=== PATIENT | female | born 1995 | race Caucasian/White ===

== ENCOUNTER 2016-09-09 15:31 | Inpatient (IN) | payer OTHER ==
[~2016-09-09] VITALS: Ht 160 cm; Wt 52.7 kg
[2016-09-09] MEDS ORDERED: SODIUM CHLORIDE 0.9% 1,000ML IVBOLUS ONE ×2 (16:00→23:30)
[2016-09-09] MEDS ORDERED: KETOROLAC 30 MG/1 ML IVPush ONE (16:00)
[2016-09-09] MEDS ORDERED: SODIUM CHLORIDE FLUSH 10ML SYR IVF ONE (16:00)
[2016-09-09] MEDS ORDERED: KETOROLAC 30 MG/1 ML ONE (16:03)
[2016-09-09 16:44] LABS: BLOOD UREA NITROGEN 8 mg/dL (7-18)
[2016-09-09 16:51] LABS: IS PT STATUS REG ER OR PRE ER? YES
[2016-09-09 16:59] LABS: DIFF TOTAL CELLS COUNTED 100 CELL DIFF
[2016-09-09 17:01] LABS: LARGE PLATELETS 1+
[2016-09-09 17:09] LABS: VERIFY COUNTS? YES
[2016-09-09] MEDS ORDERED: OMNIPAQUE 350 MG/ML, 100ML BOTTLE ONE (17:27)
[2016-09-09] MEDS ORDERED: CEFTRIAXONE PMX 1GM/50ML 50 ML IV ONE (18:00)
[2016-09-09] MEDS ORDERED: CEFTRIAXONE 2 GM in SODIUM CHLORIDE 0.9% 50 ML IV SCH (18:00)
[2016-09-09] MEDS ORDERED: VANCOMYCIN PER PHARMACY MC ONE (18:00)
[2016-09-09] MEDS ORDERED: CEFTRIAXONE PMX 2GM/50ML 50 ML ONE (18:04)
[2016-09-09 18:08] LABS: DAU SCREEN DISCLAIMER
[2016-09-09] MEDS ORDERED: POLYETHYLENE GLYCOL 17 GM PACKET PO PRN (18:30)
[2016-09-09] MEDS ORDERED: PHARMACOKINETIC CONSULTATION MC ONE (18:30)
[2016-09-09] MEDS ORDERED: VANCOMYCIN PER PHARMACY MC PRN (18:30)
[2016-09-09] MEDS ORDERED: ONDANSETRON 2MG/ML, 2ML IVPush PRN (18:30)
[2016-09-09] MEDS ORDERED: BISACODYL 10 MG SUPP PR PRN (18:30)
[2016-09-09] MEDS ORDERED: PHARMACOKINETIC MONITORING MC ONE (18:30)
[2016-09-09] MEDS ORDERED: VANCOMYCIN 1,300 MG in SODIUM CHLORIDE 0.9% 250 ML IV ONE (19:00)
[2016-09-09] MEDS ORDERED: PHARMACOKINETIC MONITORING MC PRN (19:00)
[2016-09-09 19:09] LABS: HIV 1&2 ANTIBODY SCREEN Nonreactive (Nonreactive); HIV-1 p24 ANTIGEN Nonreactive (Nonreactive)
[2016-09-09 19:21] LABS: HEPATITIS C VIRUS ANTIBODY Nonreactive (Nonreactive)
[2016-09-09 19:25] VITALS: BP 94/53
[2016-09-09] MEDS ORDERED: metroNIDAZOLE 500 MG TABLET PO ONE (19:30)
[2016-09-09] MEDS: SODIUM CHLORIDE 0.9% 1,000 ML IV SCH (20:48)
[2016-09-09] MEDS: NICOTINE 7 MG/24 HR PATCH.TD24 TD SCH (20:50)
[2016-09-09] MEDS: HEPARIN 5,000 UNITS/ML, 1ML SQ SCH (20:52)
[2016-09-09 23:05] VITALS: BP 104/64
[2016-09-09] MEDS: ACETAMINOPHEN 325 MG TABLET PO PRN (23:30)
[2016-09-10 01:20] VITALS: BP 104/54
[2016-09-10] MEDS: VANCOMYCIN 900 MG in SODIUM CHLORIDE 0.9% 100 ML IV SCH ×3 (04:31→20:35)
[2016-09-10] MEDS: HEPARIN 5,000 UNITS/ML, 1ML SQ SCH ×3 (04:32→20:35)
[2016-09-10 04:45] LABS: ASPARTATE AMINO TRANSFERASE 21 U/L (15-37); BLOOD UREA NITROGEN 7 mg/dL (7-18)
[2016-09-10 04:50] LABS: IS PT STATUS REG ER OR PRE ER? NO
[2016-09-10 05:42] LABS: DIFF TOTAL CELLS COUNTED 100 CELL DIFF
[2016-09-10 05:44] LABS: VERIFY COUNTS? YES
[2016-09-10 05:45] LABS: LARGE PLATELETS 1+
[2016-09-10] MEDS: ACETAMINOPHEN 325 MG TABLET PO PRN (06:30)
[2016-09-10 07:28] VITALS: BP 93/56
[2016-09-10] MEDS: OXYcodone IR 5MG TABLET PO PRN ×5 (07:42→20:34)
[2016-09-10] MEDS: SENNA/DOCUSATE TABLET PO SCH (09:00)
[2016-09-10] MEDS: SODIUM CHLORIDE 0.9% 1,000 ML IV SCH ×2 (09:13→22:00)
[2016-09-10 15:20] VITALS: BP 100/66
[2016-09-10] MEDS ORDERED: CEFTRIAXONE PMX 2GM/50ML 50 ML IVPB SCH (18:00)
[2016-09-10 19:00] VITALS: BP 102/59
[2016-09-10] MEDS ORDERED: CEFTRIAXONE 2 GM in SODIUM CHLORIDE 0.9% 50 ML IV SCH (19:00)
[2016-09-10] MEDS: NICOTINE 7 MG/24 HR PATCH.TD24 TD SCH (20:34)
[2016-09-10] MEDS: DOCUSATE 100 MG CAPSULE PO SCH (20:34)
[2016-09-10] MEDS: CEFTRIAXONE PMX 2GM/50ML 50 ML IVPB SCH (22:00)
[2016-09-11 00:25] VITALS: BP 98/61
[2016-09-11] MEDS: KETOROLAC 30 MG/1 ML IVPush SCH ×4 (00:28→20:05)
[2016-09-11] MEDS: ACETAMINOPHEN 325 MG TABLET PO PRN ×2 (00:29→14:20)
[2016-09-11] MEDS: OXYcodone IR 5MG TABLET PO PRN ×4 (00:34→18:37)
[2016-09-11] MEDS: HEPARIN 5,000 UNITS/ML, 1ML SQ SCH ×3 (05:00→20:07)
[2016-09-11] MEDS: SODIUM CHLORIDE 0.9% 1,000 ML IV SCH (07:47)
[2016-09-11] MEDS: VANCOMYCIN 900 MG in SODIUM CHLORIDE 0.9% 100 ML IV SCH ×2 (08:07→16:38)
[2016-09-11] MEDS: SENNA/DOCUSATE TABLET PO SCH (09:00)
[2016-09-11] MEDS: DOCUSATE 100 MG CAPSULE PO SCH ×2 (09:00→20:07)
[2016-09-11 09:31] VITALS: BP 108/72
[2016-09-11 10:55] LABS: BLOOD UREA NITROGEN 6 mg/dL (7-18)
[2016-09-11] MEDS: PANTOPRAZOLE 40 MG IV IVPush SCH (14:00)
[2016-09-11 16:28] VITALS: BP 97/61
[2016-09-11] MEDS ORDERED: POTASSIUM CHLORIDE 20 MEQ TAB.ER.PRT PO SCH (17:00)
[2016-09-11] MEDS ORDERED: SODIUM CHLORIDE 0.9% 1,000 ML IV SCH (18:15)
[2016-09-11 18:35] VITALS: BP 105/68
[2016-09-11] MEDS: NICOTINE 7 MG/24 HR PATCH.TD24 TD SCH (20:08)
[2016-09-11] MEDS ORDERED: PRAMOXINE/ZINC OXIDE 28GM EXT SCH (21:00)
[2016-09-11 21:07] VITALS: BP 98/65
[2016-09-11] MEDS: CEFTRIAXONE PMX 2GM/50ML 50 ML IVPB SCH (22:02)
[2016-09-12] MEDS: VANCOMYCIN 900 MG in SODIUM CHLORIDE 0.9% 100 ML IV SCH (01:04)
[2016-09-12] MEDS: PANTOPRAZOLE 40 MG IV IVPush SCH (01:11)
[2016-09-12] MEDS: HEPARIN 5,000 UNITS/ML, 1ML SQ SCH (05:00)
[2016-09-12 05:15] VITALS: BP 102/64
[2016-09-12] MEDS: KETOROLAC 30 MG/1 ML IVPush SCH (05:36)
[2016-09-12 06:08] LABS: BLOOD UREA NITROGEN 5 mg/dL (7-18)
== END 2016-09-12 06:45 | disposition left against medical advice (07) | DRG 872 ==
LOC: ED 17:35 → EDIP 17:46 → 4EST 19:17
PROVIDERS: ADMIT Hospitalist; ATTEND Hospitalist
DX: A41.01 Sepsis due to Methicillin susceptible Staphylococcus aureus (principal); E87.1 Hypo-osmolality and hyponatremia; E44.1 Mild protein-calorie malnutrition; N39.0 Urinary tract infection, site not specified; I38 Endocarditis, valve unspecified; Z91.19 Patient's noncompliance with other medical treatment and regimen; E87.5 Hyperkalemia; F41.1 Generalized anxiety disorder; E87.6 Hypokalemia; F17.210 Nicotine dependence, cigarettes, uncomplicated; D69.6 Thrombocytopenia, unspecified; I25.2 Old myocardial infarction; A59.9 Trichomoniasis, unspecified; Z68.22 Body mass index [BMI] 22.0-22.9, adult; Z88.1 Allergy status to other antibiotic agents; Z88.2 Allergy status to sulfonamides
CPT/HCPCS: 36415; 71010; 71275; 80048; 80053; 80074; 80076; 80307; 81001; 82040; 83605; 83735; 83880; 84100; 84145; 84484; 84703; 85025; 85610; 85651; 86141; 86703; 87040; 87077; 87086; 87147; 87150; 87186; 87491; 87591; 87899; 93005; 93306; 96361; 96374; J0696; J1885; J3370; Q9967; C9113; G0435; J7030; J7050